=== PATIENT | female | born 2000 | race Caucasian/White ===

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

== ENCOUNTER 2018-08-17 06:55 | Day surgery (SDC) | payer BC, OTHER ==
[~2018-08-17] VITALS: Ht 160 cm; Wt 115.7 kg
[~2018-08-17 06:55] MED LIST changes: +HEARTBURN RELIE75 M1 PO; +JUNEL FE 1 MG-1 EACH PO; +PERCOCET 5-3251 EACH PO
[2018-08-17] MEDS ORDERED: HYDROCODONE-ACE15 M3 PO (09:44)
--- NOTE | 2018-08-17 15:54 | OR ---
[facility] [place] [facility] [address] [place], [place] [address] Signed DATE OF OPERATION: 08/17/2018 SURGEON: Nathaniel Ochoa MD PREOPERATIVE DIAGNOSIS: Chronic tonsillitis. POSTOPERATIVE DIAGNOSIS: Chronic tonsillitis. PROCEDURE: Tonsillectomy. ANESTHESIA: General orotracheal. ANESTHESIOLOGIST: Shani Neal CRNA. PREOPERATIVE HISTORY: Odalis is a 18-year-old young lady with chronic tonsillitis, multiple infections, tonsillar hypertrophy, taken to the operating room for the above-mentioned procedures. OPERATIVE PROCEDURE AND FINDINGS: After informed consent, the patient was taken to the operating room, placed in a supine position where general orotracheal anesthesia was induced. The patient and procedure were verified. The patient was re-positioned. McIvor mouthgag placed into suspension. Headlight exam of the pharynx showed moderately hypertrophic 2+ cryptic tonsils. Nonacutely infected. The left tonsil was grasped with a tenaculum, retracted medially, and removed from its fossa with mucosal sparing incisions with coblation. Field was dry after the procedure. Same procedure on the right tonsil. Tonsils were sent to Pathology. Re-inspection of the tonsil fossa showed no bleeding points. The pharynx was suctioned clear of blood secretions. The mouthgag was removed. The patient was awakened, extubated, transported to the recovery room in good condition. COMPLICATIONS: None. BLOOD LOSS: Minimal. Electronically Signed By: NATHANIEL OCHOA MD 08/17/18 1554 PATIENT NAME: ODALIS EASLEY OPERATIVE REPORT DATE OF : 98 REPORT #: [id number] PHYSICIAN: NATHANIEL OCHOA MD PCP: RAINA RIVERA REPORT IS CONFIDENTIAL AND NOT TO BE RELEASED WITHOUT AUTHORIZATION [address], [place] [address] Signed SPECIMEN: To Pathology. DRAINS: None. Nathaniel Ochoa MD GC/MODL /[id number] Copies: ~ Electronically Signed By: NATHANIEL OCHOA MD 08/17/18 1554 PATIENT NAME: ODALIS EASLEY OPERATIVE REPORT DATE OF : 98 REPORT #: [id number] PHYSICIAN: NATHANIEL OCHOA MD PCP: RAINA RIVERA REPORT IS CONFIDENTIAL AND NOT TO BE RELEASED WITHOUT AUTHORIZATION
== END 2018-08-17 10:10 | disposition home or self-care (01) ==
LOC: DS 06:55
PROVIDERS: Otolaryngology
PROC: 0CBPXZZ Excision of Tonsils, External Approach (ICD-10-PCS; principal; 2018-08-17 08:45)
DX: J35.01 Chronic tonsillitis (principal); E66.01 Morbid (severe) obesity due to excess calories; Z79.899 Other long term (current) drug therapy; Z87.891 Personal history of nicotine dependence; Z68.42 Body mass index [BMI] 45.0-49.9, adult
CPT/HCPCS: 00170; J0330; J1100; J2250; J2405; J2704; J3010; J7040; J7120

== ENCOUNTER 2019-04-12 16:27 | Emergency (ER) | payer BC ==
[~2019-04-12] VITALS: Ht 160 cm; Wt 115.7 kg
[~2019-04-12 16:27] MED LIST changes: +HYDROCODONE-ACE15 M3 PO
[2019-04-12] MEDS ORDERED: NORETHINDRONE0.35 MG PO (16:46)
== END 2019-04-12 16:50 | disposition home or self-care (01) ==
LOC: ED 16:27
DX: R50.9 Fever, unspecified (principal)

== ENCOUNTER 2019-06-12 13:33 | Emergency (ER) | payer BC ==
[~2019-06-12] VITALS: Ht 160 cm; Wt 115.7 kg
--- OUTSIDE RECORDS SUMMARY | ~2019-06-12 | XMS | Clinical Summary ---
Demographics + + + | Address | [address] | | | [address] | | | [place] [address] | + + + | Home Phone | | + + + | Preferred Language | Unknown | + + + | Marital Status | | + + + | Voodoo Affiliation | Unknown | + + + | Race | Unknown | + + + | Ethnic Group | Unknown | + + + Author + + + | Author | [facility] (Historical as of | | | 03-12-19) | + + + | Organization | [facility] (Historical as of | | | 03-12-19) | + + + | Address | Unknown | + + + | Phone | Unavailable | + + + Support +--------+ +---------+ + | Name | Relationship | Address | Phone | +--------+ +---------+ + | No,One | ECON | Unknown | | +--------+ +---------+ + Care Team Providers + +------+ + | Care Hand Striper Name | Role | Phone | + +------+ + | Bradly Alonzo | PP | | + +------+ + Allergies No Known Allergies Current Medications No known medications Active Problems No known active problems Social History + +-------+ +--------+------+ | Tobacco Use | Types | Packs/Day | Years | Date | | | | | Used | | + +-------+ +--------+------+ | Never Assessed | | | | | + +-------+ +--------+------+ + + + | Sex Assigned at | Date Recorded | | | | + + + | Not on file | | + + + Last Filed Vital Signs + + + + | Vital Sign | Reading | Time Taken | + + + + | Blood Pressure | - | - | + + + + | Pulse | - | - | + + + + | Temperature | - | - | + + + + | Respiratory Rate | - | - | + + + + | Oxygen Saturation | - | - | + + + + | Inhaled Oxygen | - | - | | Concentration | | | + + + + | Weight | 112.5 kg (248 lb) | 01/18/2018 4:02 PM PDT | + + + + | Height | 160 cm (5' 3") | 01/18/2018 4:02 PM PDT | + + + + | Body Mass Index | 43.93 | 01/18/2018 4:02 PM PDT | + + + + Plan of Treatment + + + + + | Health Maintenance | Due Date | Last Done | Comments | + + + + + | Well Child Check | | | | | | 1 | | | + + + + + | Vaccine: HPV (1 - | | | | | Female 3-dose | 3 | | | | series) | | | | + + + + + | Vaccine: | | | | | Dtap/Tdap/Td (1 - | 7 | | | | Tdap) | | | | + + + + + | Cervical Cancer | | | | | Screening (Pap) | 9 | | | + + + + + | Vaccine: Influenza | | | | | (#1) | 9 | | | + + + + + Results Not on filefrom Last 3 Months Insurance + +--------+ +------+-------+ + | Payer | Benefi | Subscriber | Type | Phone | Address | | | t Plan | ID | | | | | | / | | | | | | | Group | | | | | + +--------+ +------+-------+ + | MEDICAID | [employer] | [id number] | | | [address] | | | [place] | | | | [place] | | | [place] | | | | [phone] | | | [employer] | | | | | + +--------+ +------+-------+ + + +--------+ +--------+ + + | Guarantor Name | [employer] | Relation to | Date | Phone | Billing Address | | | t Type | Patient | of | | | | | | | | | | + +--------+ +--------+ + + | ODALIS EASLEY | Person | Self [birth year] Home: | [address] | | | al/Fam | | 1999 | [phone] | [facility] [address] [place], | | | [place] | | | [phone] | [place] [phone] | + +--------+ +--------+ + +
--- OUTSIDE RECORDS SUMMARY | ~2019-06-12 | XMS | Clinical Summary ---
Demographics + + + | Address | [address] | | | [address] | | | [place] [address] | + + + | Home Phone | | + + + | Preferred Language | Unknown | + + + | Marital Status | | + + + | Evangelical Affiliation | Unknown | + + + | Race | Unknown | + + + | Ethnic Group | Unknown | + + + Author + + + | Author | [facility] [employer] [facility] (Historical as of | | | 03-12-19) | + + + | Organization | [facility] [employer] (Historical as of | | | 03-12-19) | + + + | Address | Unknown | + + + | Phone | Unavailable | + + + Support +--------+ +---------+ + | Name | Relationship | Address | Phone | +--------+ +---------+ + | No,One | ECON | Unknown | | +--------+ +---------+ + Care Team Providers + +------+ + | Care Boiler Room Helper Name | Role | Phone | + [...] +------+-------+ + | MEDICAID | [employer] | [id number] | | | [address] | | | [place] | | | | [place] | | | [place] | | | | [phone] | | | PROGRAM FACILITATOR | | | | | + +--------+ [...] Self | [birth year] Home: | [address] | | | al/Fam | | 1999 | [phone] | [facility] [address] [place], | | | [place] | | | [phone] | [place] [address] | + +--------+ +--------+ + +
[~2019-06-12 13:33] MED LIST changes: +NORETHINDRONE0.35 MG PO
[2019-06-12] MEDS ORDERED: PRENATABS FA T1 EACH PO (14:03)
[2019-06-12] MEDS ORDERED: PROTONIX20 MG PO (15:35)
[2019-06-12] MEDS ORDERED: ZOFRAN4 MG PO (15:35)
== END 2019-06-12 15:42 | disposition home or self-care (01) ==
LOC: ED 13:33
DX: O99.89 Other specified diseases and conditions complicating pregnancy, childbirth and the puerperium (principal); R10.13 Epigastric pain; Z3A.01 Less than 8 weeks gestation of pregnancy; Z88.8 Allergy status to other drugs, medicaments and biological substances; Z79.899 Other long term (current) drug therapy
CPT/HCPCS: 80053; 85025; 96361; 96374; 96375; 99284-25; C9113; J2405; J7030

== ENCOUNTER 2020-01-19 13:06 | Inpatient (IN) | payer BC ==
[~2020-01-19] VITALS: Ht 160 cm; Wt 105.0 kg
[~2020-01-19 13:06] MED LIST changes: +PRENATABS FA T1 EACH PO; +PROTONIX20 MG PO; +ZOFRAN4 MG PO
[2020-01-23] MEDS ORDERED: PEPCID20 MG PO (06:33)
[2020-01-23] MEDS ORDERED: LACTAID3000 UNI1 PO (06:35)
--- NOTE | 2020-01-23 08:35 | NUR ---
01/23/20 0835 Radha Haider 9591 PT ARRIVED TO ROOM 103 AT BEDSIDE. VSS. BABY TO CHEST WITH FBC RN. PT DENIES PAIN AND NAUSEA.
--- NOTE | 2020-01-24 12:12 | PR ---
[facility] [address] [facility] [place] [address] Signed PP Progress Notes Datetime Report Generated by CPN: 01/24/2020 12:12 SUBJECTIVE: [id number] Pain: Within normal limits Nausea/Vomiting: Denies Vital Signs: [id number] Vital Signs: Reviewed; Within Normal Limits Notable Details: PP Hgb/Hct = 11.1/32.2 EXAM: [id number] Abdomen/Uterus: Normal Lochia: Normal Extremities: Normal Incision: Normal IMPRESSION/PLAN/PROCEDURES: [id number] Impression: Normal progression Plan: Continue present management Procedures: None Progress Notes: Doing well, without complaint. Up moving, voiding without difficulty. Signing Physician: Carline Birch MD Copies: ~ *Electronically Signed* 01/24/20 1212 CARLINE BIRCH MD PATIENT NAME: ODALIS EASLEY PROGRESS NOTE DATE OF : 98 PHYSICIAN: CARLINE BIRCH MD RPT #: [id number] REPORT IS CONFIDENTIAL AND NOT TO BE RELEASED WITHOUT AUTHORIZATION
--- NOTE | 2020-01-24 12:13 | OR ---
[facility] [address] [place], [place] [address] Signed DATE OF OPERATION: 01/23/2020 SURGEON: Sam Camarena MD PREOPERATIVE DIAGNOSES: Term , previous section. POSTOPERATIVE DIAGNOSES: Term , previous section. PROCEDURE: Repeat low transverse segment section, delivery live female . PROCESSING MANAGER: Dr. Carpio. ANESTHESIA: Spinal. ESTIMATED BLOOD LOSS: 300 mL. COMPLICATIONS: None. DRAINS: Montoya to bladder. FINDINGS: Live female infant, Apgars 8 and 9. Weight 6 pounds 7 ounces. Normal uterus, normal tubes and ovaries bilateral. DESCRIPTION OF PROCEDURE: The patient was brought into the operating room, placed in supine position. After adequate spinal anesthesia was obtained, was prepped and draped in usual sterile fashion. Montoya catheter was placed in the bladder. A Pfannenstiel skin incision was made with a scalpel through previous surgical scar. Subcutaneous tissue was dissected with scalpel and Bovie. The fascia was nicked with scalpel, extended in a transverse fashion using curved scissors. The underlying abdominal musculature was bluntly and sharply from the fascia above and below the incision. The abdominal Electronically Signed By: SAM CAMARENA MD 01/24/20 1213 PATIENT NAME: ODALIS EASLEY OPERATIVE REPORT DATE OF : 98 REPORT #: [id number] PHYSICIAN: SAM CAMARENA MD PCP: RAINA NEAL PA-C REPORT IS CONFIDENTIAL AND NOT TO BE RELEASED WITHOUT AUTHORIZATION [facility] [address] [facility] [place] [address] Signed musculature was bluntly and sharply along the midline. The peritoneum was grasped with hemostats, elevated, nicked with scissors, extended in vertical fashion using scissors. The Gino self-retaining retractor was inserted into the incision and tightened in place. The lower uterine segment was noted to have slight elevation in the midline, so the pickups with teeth were used to elevate the bladder flap, which was nicked with Metzenbaum scissors and gently taken down. The lower uterine segment was then carefully nicked with scalpel and extended in transverse fashion using finger dissection. Bulging bag of clear fluids noted in the incision, this was opened with pickups with teeth and the incision was noted to be in ROP presentation. The head was easily delivered from the incision. The rest of the infant easily delivered from the incision and the cord doubly clamped and cut and passed off table in good condition to awaiting nurse. The cord blood was obtained, then the placenta manually removed. Uterine cavity was explored with a lap pad to remove any retained membranes. An angle stitch of 0 Monocryl was placed one in the incision and a running locking stitch of 0 Monocryl starting at the other end used to close the incision. A 2nd running stitch of 0 Monocryl was used to imbricate the 1st layer. Good hemostasis was obtained. The entire pelvis was irrigated, suctioned examined and few very superficial spots on incision were cauterized with the Bovie. When good hemostasis was obtained, the Gino retractor was removed and sheet of ACell placed over lower uterine segment. The anterior wall peritoneum was then closed using running stitch of 2-0 Vicryl suture. The abdominal musculature was reapproximated using interrupted stitches of 0 Vicryl suture. The abdominal wall incision was irrigated, suctioned, examined, any bleeding spots cauterized with the Bovie. Powdered ACell was sprinkled on the abdominal musculature. Then, the fascia closed using two running stitch of 0 Vicryl suture meeting in the midline. Subcutaneous tissue was irrigated, suctioned, examined any bleeding spots cauterized with the Bovie. Subcutaneous tissue was then closed using interrupted stitches of 3-0 Vicryl sutures. Skin was reapproximated using skin clips. The patient tolerated the procedure well and went to the recovery room in good condition. The sponge, needle, and instrument count were correct at the end of the procedure. Sam Camarena MD MJB/MODL /[id number] Electronically Signed By: SAM CAMARENA MD 01/24/20 1213 PATIENT NAME: ODALIS EASLEY OPERATIVE REPORT DATE OF : 98 REPORT #: [id number] PHYSICIAN: SAM CAMARENA MD PCP: RAINA NEAL PA-C REPORT IS CONFIDENTIAL AND NOT TO BE RELEASED WITHOUT AUTHORIZATION [address] [address] Signed cc: Raina Neal PA-C Copies: ~ Electronically Signed By: SAM CAMARENA MD 01/24/20 1213 PATIENT NAME: ODALIS EASLEY ANNE OPERATIVE REPORT DATE OF : 98 REPORT #: [id number] PHYSICIAN: SAM CAMARENA MD PCP: RAINA NEAL PA-C REPORT IS CONFIDENTIAL AND NOT TO BE RELEASED WITHOUT AUTHORIZATION
--- NOTE | 2020-01-25 12:12 | PR ---
[facility] [address] [facility] [place] [address] Signed PP Progress Notes Datetime Report Generated by CPN: 01/25/2020 12:12 SUBJECTIVE: [id number] Pain: Within normal limits Nausea/Vomiting: Denies Bowel Movement: Yes Vital Signs: [id number] Vital Signs: Reviewed; Within Normal Limits Notable Details: PP Hgb/Hct = 11.1/32.2 EXAM: [id number] Abdomen/Uterus: Normal Lochia: Normal Extremities: Normal Incision: Normal IMPRESSION/PLAN/PROCEDURES: [id number] Impression: Normal progression Plan: Discharge Procedures: None Progress Notes: Doing well, without complaint, wants to go home. Signing Physician: Carline Birch MD Copies: ~ *Electronically Signed* 01/25/20 1212 CARLINE BIRCH MD PATIENT NAME: ODALIS EASLEY PROGRESS NOTE DATE OF : 98 PHYSICIAN: CARLINE BIRCH MD RPT #: [id number] REPORT IS CONFIDENTIAL AND NOT TO BE RELEASED WITHOUT AUTHORIZATION
== END 2020-01-25 14:19 | disposition home or self-care (01) | DRG 787 ==
LOC: FBC 01-23 05:50
PROVIDERS: ADMIT General Practice
PROC: 10D00Z1 Extraction of Products of Conception, Low, Open Approach (ICD-10-PCS; principal; 2020-01-23 06:45)
DX: O34.211 Maternal care for low transverse scar from previous cesarean delivery (principal); O99.324 Drug use complicating childbirth; N85.8 Other specified noninflammatory disorders of uterus; Z37.0 Single live birth; O99.824 Streptococcus B carrier state complicating childbirth; O32.2XX0 Maternal care for transverse and oblique lie, not applicable or unspecified; Z3A.39 39 weeks gestation of pregnancy; O99.62 Diseases of the digestive system complicating childbirth; K21.9 Gastro-esophageal reflux disease without esophagitis; F12.90 Cannabis use, unspecified, uncomplicated; O28.2 Abnormal cytological finding on antenatal screening of mother; Z79.899 Other long term (current) drug therapy; Z88.3 Allergy status to other anti-infective agents; Z87.891 Personal history of nicotine dependence
CPT/HCPCS: 01961; 36415; 85027; A9270; J0690; J2001; J2274; J2405; J2590; J3010; J7121

== ENCOUNTER 2024-02-14 10:09 | Emergency (ER) | payer OTHER ==
[~2024-02-14] VITALS: Ht 160 cm; Wt 91.0 kg
[~2024-02-14 10:09] MED LIST changes: +LACTAID3000 UNI1 PO; +PEPCID20 MG PO
[2024-02-14] MEDS ORDERED: ZOLOFT50 MG PO (10:22)
[2024-02-14] MEDS ORDERED: CHOLESTYRAMINE P4 GM (10:23)
[2024-02-14] MEDS ORDERED: droPERidol 5 MG/2 ML VIAL IV ONE (10:30)
[2024-02-14] MEDS ORDERED: diphenhydrAMINE HCL 50 MG/ML VIAL IV ONE (10:30)
[2024-02-14] MEDS ORDERED: SODIUM CHLORIDE 0.9% 1,000 ML IV ONE ×2 (10:30→11:30)
[2024-02-14 10:31] LABS: BASOPHILS 0.4 % (0-2); HEMATOCRIT 43.4 % (35.0-50.0); HEMOGLOBIN 14.9 g/dL (12.0-18.0); LYMPHOCYTES 15.2 % (24-44); MCH 31.2 (27-36); MCHC 34.2 g/dl (30-36); MCV 91.2 fl (81-99); MONOCYTES 2.2 % (0-12); NEUTROPHILS 82.2 % (39-80); PLATELET COUNT 324 K/uL (140-440); RBC 4.76 M/ul (4.3-5.7); RDW 12.8 (10.5-15.0)
[2024-02-14 10:51] LABS: ALBUMIN 4.5 g/dL (3.4-5.0); ALBUMIN/GLOBULIN RATIO 1.25 (1.1-2.4); ANION GAP 18.6 (7-21); BILIRUBIN, TOTAL 0.4 ng/dL (0.2-1.0); BUN/CREATININE RATIO 18.98 (6.0-28.6); CALCIUM 9.6 mg/dL (8.5-10.1); CREATININE, SERUM 0.79 mg/dL (0.55-1.02); POTASSIUM 3.6 mmol/L (3.5-5.1); PROTEIN, TOTAL 8.1 g/dL (6.4-8.2)
[2024-02-14] MEDS ORDERED: MAGNESIUM SULFATE 2 GM/50 ML BAG IV ONE (11:30)
[2024-02-14] MEDS ORDERED: ONDANSETRON ODT8 MG PO (11:41)
[2024-02-14 12:49] VITALS: BP 105/49
== END 2024-02-14 12:49 | disposition home or self-care (01) ==
LOC: ED 10:09
PROVIDERS: Emergency Medicine
DX: K29.00 Acute gastritis without bleeding (principal); Z87.891 Personal history of nicotine dependence; Z88.8 Allergy status to other drugs, medicaments and biological substances; Z91.011 Allergy to milk products
CPT/HCPCS: 36415; 80053; 83735; 84703; 85025; 96361; 96365; 96375; 99284-25; J1200; J1790; J3475; J7030